=== PATIENT | male | born 1960 | race Caucasian/White ===

== ENCOUNTER 2023-08-01 04:59 | Inpatient (IN) | payer OTHER ==
[~2023-08-01] VITALS: Ht 180.3 cm; Wt 132.9 kg
[2023-08-01] MEDS: IPRATROPIUM 0.5MG/ALBUTEROL 2.5MG INH SOL UD 3ML (DUONEB) NEB PRN (05:59)
[2023-08-01 06:13] LABS: VENOUS BASE EXCESS -1.3 (-2.0-2.0); VENOUS HCO3 24.7 MMOL/L (23.0-27.0); VENOUS O2 SATURATION 79.1 % (60.0-80.0); VENOUS PARTIAL PRESSURE CO2 45.7 mmHg (38.0-50.0); VENOUS TOTAL CO2 26.1 MMOL/L (24.0-28.0)
[2023-08-01 06:18] LABS: BASO % 0.2 % (0.0-1.0); EOS # 0.2 10^3/uL (0.0-0.5); EOS % 1.4 % (0.0-3.0); HEMATOCRIT 42.8 % (42.0-52.0); HEMOGLOBIN 14.4 g/dl (13.5-17.5); LYMPH # 0.8 10^3/uL (1.5-5.0); LYMPH % 4.7 % (24.0-44.0); MEAN CORPUSCULAR HEMOGLOBIN 30.6 pg (27.0-33.0); MEAN CORPUSCULAR HGB CONC 33.6 g/dl (32.0-36.5); MEAN CORPUSCULAR VOLUME 90.9 fl (80.0-96.0); MONO # 0.7 10^3/uL (0.0-0.8); MONO % 4.4 % (2.0-8.0); NEUTROPHILS # 14.6 10^3/uL (1.5-8.5); NEUTROPHILS % 88.9 % (36.0-66.0); PLATELET COUNT, AUTOMATED 223 10^3/uL (150-450); RED BLOOD COUNT 4.71 10^6/uL (4.30-6.10); WHITE BLOOD COUNT 16.4 10^3/uL (4.0-10.0)
[2023-08-01 06:46] LABS: ALKALINE PHOSPHATASE 65 U/L (46-116); ALT/SGPT 44 U/L (7.0-40); AST/SGOT 32 U/L (<34); BILIRUBIN,DIRECT 0.2 MG/DL (<0.4); BILIRUBIN,TOTAL 0.6 MG/DL (0.3-1.2); BLOOD UREA NITROGEN 22 MG/DL (9-23); CALCIUM LEVEL 10.4 MG/DL (8.3-10.6); CARBON DIOXIDE LEVEL 26 MMOL/L (20-31); CHLORIDE LEVEL 100 MMOL/L (98-107); CK-MB VALUE MASS 3.8 NG/ML (<3.6); CREATININE FOR GFR 1.02 MG/DL (0.70-1.30); GLOMERULAR FILTRATION RATE > 60.0 (>49); GLUCOSE, FASTING 181 MG/DL (74-106); POTASSIUM SERUM 4.6 MMOL/L (3.5-5.1); SODIUM LEVEL 134 MMOL/L (136-145); TOTAL PROTEIN 7.1 G/DL (5.7-8.2)
[2023-08-01 06:53] LABS: CPK CREATINE PHOSPHOKINASE 231 U/L (46-171); MB/CK RELATIVE INDEX 1.64 (< OR =4)
[2023-08-01] MEDS: NS 1,000 ML IV ONE ×3 (07:13→12:07)
[2023-08-01] MEDS: methylPREDNISolone 125MG 2ML VIAL IV ONE (07:13)
[2023-08-01] MEDS ORDERED: FLOM0.4C39 PO (08:20)
[2023-08-01] MEDS ORDERED: CELE0.09 PO (08:20)
[2023-08-01] MEDS ORDERED: LOSA100T8 PO (08:20)
[2023-08-01] MEDS ORDERED: METF10004 PO (08:20)
[2023-08-01] MEDS ORDERED: CHOL25TA2 PO (08:20)
[2023-08-01] MEDS ORDERED: HOME MED LIST COMPLETE! XX SCH (08:20)
[2023-08-01] MEDS ORDERED: TERA10CA3 PO (08:20)
[2023-08-01] MEDS ORDERED: AVOD0.5C PO (08:20)
[2023-08-01] MEDS: AUGMENTIN 875 MG TAB PO ONE (08:34)
[2023-08-01 10:56] LABS: CK-MB VALUE MASS 3.5 NG/ML (<3.6)
[2023-08-01 10:57] LABS: MB/CK RELATIVE INDEX 1.91 (< OR =4)
[2023-08-01] MEDS ORDERED: GLUCAGON INJ 1MG VIAL SC PRN (11:45)
[2023-08-01] MEDS ORDERED: GLUCOSE 4 GM CHEW PO PRN (11:45)
[2023-08-01] MEDS ORDERED: DEXTROSE 50% 50ML SYRINGE IV PRN (11:45)
[2023-08-01] MEDS ORDERED: ACETAMINOPHEN TAB 650MG DOSE (2X325MG) PO PRN (11:45)
[2023-08-01] MEDS: cefTRIAXone SOD 1 GM in D5W MINI-BAG PLUS 50 ML IV ONE (12:07)
[2023-08-01 13:15] VITALS: BP 140/78; TEMP 97.7; O2SAT 97
[2023-08-01] MEDS: AZITHROMYCIN INJ 500 MG, VIAL MATE ADAPTER 1 EACH in NS 250 ML IV SCH (13:46)
[2023-08-01] MEDS: VITAMIN D 1,000 INTERNATIONAL UNITS TABLET PO SCH (13:46)
[2023-08-01] MEDS: TAMSULOSIN 0.4 MG CAP PO SCH (13:47)
[2023-08-01] MEDS: LOSARTAN 50MG TABLET PO SCH (13:47)
[2023-08-01] MEDS: INSULIN LISPRO (NovoLOG) PER UNIT SC SCH ×2 (13:59→21:00)
[2023-08-01 14:00] VITALS: BP 147/95; TEMP 97.9; O2SAT 99
[2023-08-01] MEDS: NS 1,000 ML IV SCH (15:02)
[2023-08-01] MEDS: DUTASTERIDE 0.5 MG CAP (AVODART) PO SCH (16:23)
[2023-08-01] MEDS: TERAZOSIN 5MG CAPSULE PO SCH (16:24)
[2023-08-01 17:27] LABS: CHOLESTEROL RISK RATIO 2.6 (<5)
[2023-08-01 17:29] LABS: FREE T4 1.22 NG/DL (0.89-1.76); THYROID STIMULATING HORMONE 0.948 uIU/ML (0.55-4.78)
[2023-08-01 17:42] LABS: HEMOGLOBIN A1c 6.5 % (4.0-6.0)
[2023-08-01 21:30] VITALS: BP 145/90; TEMP 98.1; O2SAT 95
[2023-08-02 05:44] VITALS: BP 131/72; TEMP 97.7; O2SAT 98
[2023-08-02 06:48] LABS: HEMATOCRIT 39.3 % (42.0-52.0); HEMOGLOBIN 13.4 g/dl (13.5-17.5); MEAN CORPUSCULAR HEMOGLOBIN 30.7 pg (27.0-33.0); MEAN CORPUSCULAR HGB CONC 34.1 g/dl (32.0-36.5); MEAN CORPUSCULAR VOLUME 89.9 fl (80.0-96.0); PLATELET COUNT, AUTOMATED 266 10^3/uL (150-450); RED BLOOD COUNT 4.37 10^6/uL (4.30-6.10); WHITE BLOOD COUNT 16.3 10^3/uL (4.0-10.0)
[2023-08-02 07:24] LABS: ALBUMIN 3.5 G/DL (3.2-5.2); ALKALINE PHOSPHATASE 56 U/L (46-116); ALT/SGPT 31 U/L (7.0-40); AST/SGOT 16 U/L (<34); BILIRUBIN,TOTAL 0.4 MG/DL (0.3-1.2); BLOOD UREA NITROGEN 24 MG/DL (9-23); CALCIUM LEVEL 9.4 MG/DL (8.3-10.6); CARBON DIOXIDE LEVEL 20 MMOL/L (20-31); CHLORIDE LEVEL 106 MMOL/L (98-107); GLOMERULAR FILTRATION RATE > 60.0 (>49); GLUCOSE, FASTING 162 MG/DL (74-106); MAGNESIUM LEVEL 1.6 MG/DL (1.8-2.4); POTASSIUM SERUM 4.7 MMOL/L (3.5-5.1); SODIUM LEVEL 138 MMOL/L (136-145); TOTAL PROTEIN 6.4 G/DL (5.7-8.2)
[2023-08-02] MEDS: MAG SULF 1GM/100ML (MAG RUN) 1 GM in IV 1 EA IV ONE (08:55)
[2023-08-02] MEDS: cefTRIAXone SOD 1 GM in D5W MINI-BAG PLUS 50 ML IV SCH (11:54)
[2023-08-02] MEDS: NS 500 ML IV ONE (13:54)
[2023-08-02 14:00] VITALS: BP 143/85; TEMP 97.5; O2SAT 98
[2023-08-02] MEDS ORDERED: ALBUTEROL SULFATE 2.5MG/0.5ML INH NEB SOLN NEB PRN (15:25)
[2023-08-02] MEDS: IPRATROPIUM 0.5MG/ALBUTEROL 2.5MG INH SOL UD 3ML (DUONEB) NEB SCH (15:40)
[2023-08-02] MEDS: LEVEMIR (INSULIN DETEMIR) 1 UNITS/0.01ML SC SCH (20:44)
[2023-08-03 05:31] VITALS: BP 155/84; TEMP 97.9; O2SAT 98
[2023-08-03 06:10] LABS: BASO # 0.1 10^3/uL (0.0-0.2); BASO % 0.4 % (0.0-1.0); EOS # 1.3 10^3/uL (0.0-0.5); EOS % 11.5 % (0.0-3.0); HEMATOCRIT 36.2 % (42.0-52.0); HEMOGLOBIN 12.1 g/dl (13.5-17.5); LYMPH # 2.2 10^3/uL (1.5-5.0); LYMPH % 19.4 % (24.0-44.0); MEAN CORPUSCULAR HEMOGLOBIN 30.6 pg (27.0-33.0); MEAN CORPUSCULAR HGB CONC 33.4 g/dl (32.0-36.5); MEAN CORPUSCULAR VOLUME 91.6 fl (80.0-96.0); MONO # 0.6 10^3/uL (0.0-0.8); MONO % 5.3 % (2.0-8.0); NEUTROPHILS # 7.3 10^3/uL (1.5-8.5); NEUTROPHILS % 63.1 % (36.0-66.0); PLATELET COUNT, AUTOMATED 226 10^3/uL (150-450); RED BLOOD COUNT 3.95 10^6/uL (4.30-6.10); WHITE BLOOD COUNT 11.5 10^3/uL (4.0-10.0)
[2023-08-03 06:47] LABS: BLOOD UREA NITROGEN 26 MG/DL (9-23); CALCIUM LEVEL 8.3 MG/DL (8.3-10.6); CARBON DIOXIDE LEVEL 23 MMOL/L (20-31); CHLORIDE LEVEL 110 MMOL/L (98-107); CREATININE FOR GFR 1.18 MG/DL (0.70-1.30); GLOMERULAR FILTRATION RATE > 60.0 (>49); GLUCOSE, FASTING 111 MG/DL (74-106); MAGNESIUM LEVEL 1.6 MG/DL (1.8-2.4); POTASSIUM SERUM 4.2 MMOL/L (3.5-5.1); SODIUM LEVEL 143 MMOL/L (136-145)
[2023-08-03 08:05] VITALS: BP 159/83
[2023-08-03] MEDS: MAG SULF 1GM/100ML (MAG RUN) 1 GM in IV 1 EA IV ONE (10:04)
[2023-08-03] MEDS ORDERED: DOXY50CA35 PO (11:25)
[2023-08-03] MEDS ORDERED: CEFD300CAP PO (11:25)
[2023-08-03] MEDS ORDERED: ALB2.5NEB NEB (11:25)
[2023-08-03] MEDS ORDERED: ALBU8.5H INH (13:12)
== END 2023-08-03 13:57 | disposition home or self-care (01) | DRG 194 ==
LOC: M ED 04:59 → M ED INP 11:43 → M MSPAV 13:07
PROVIDERS: ADMIT Hospitalist; ATTEND Hospitalist
PROC: B246ZZZ Ultrasonography of Right and Left Heart (ICD-10-PCS; principal; 2023-08-01)
DX: J18.9 Pneumonia, unspecified organism (principal); J98.11 Atelectasis; I45.10 Unspecified right bundle-branch block; I10 Essential (primary) hypertension; E11.9 Type 2 diabetes mellitus without complications; J30.9 Allergic rhinitis, unspecified; L65.9 Nonscarring hair loss, unspecified; N40.0 Benign prostatic hyperplasia without lower urinary tract symptoms; Z79.899 Other long term (current) drug therapy; E78.5 Hyperlipidemia, unspecified; L71.9 Rosacea, unspecified; Z79.84 Long term (current) use of oral hypoglycemic drugs

== ENCOUNTER 2023-12-09 09:41 | Day surgery (SDC) | payer OTHER ==
[~2023-12-09] VITALS: Ht 180.3 cm; Wt 112.9 kg
[~2023-12-09 09:41] MED LIST: ALB2.5NEB NEB; ALBU8.5H INH; AVOD0.5C PO; CARB15DR33 OP; CEFD300CAP PO; CELE0.09 PO; CHOL25TA2 PO; DOXY50CA35 PO; FLOM0.4C39 PO; LOSA100T8 PO; METF10004 PO; OMEG10002 PO; PHENYLEPHRINE 10% OPHTH SOL 5ML OD PRN; ROSU10TA61 PO; TERA10CA3 PO; VENTAER INH
[2023-12-09] MEDS: ATROPINE SULFATE 1% OPHTH SOLN 2ML BTL OD SCH (10:09)
[2023-12-09] MEDS: PHENYLEPHRINE 2.5% OPHTH SOL 2ML OD SCH (10:09)
[2023-12-09] MEDS: TROPICAMIDE 1% OPHTH SOLN 15ML OD SCH (10:09)
[2023-12-09] MEDS: OFLOXACIN 0.3 % (OCUFLOX) OPTH SOL 5ML OD ONE (10:09)
[2023-12-09] MEDS: LIDOCAINE 3.5 % 1ML OPHTH TOPICAL GEL OU ONE (10:09)
[2023-12-09] MEDS ORDERED: MIDAZOLAM INJ 2MG/2ML VIAL As Ordered ONE (11:07)
[2023-12-09] MEDS ORDERED: fentaNYL 100 MCG/2 ML INJECTION As Ordered ONE (11:08)
[2023-12-09] MEDS: BSS IRRIG/VANCO(10MG)/TOBRA(5MG)/EPINEPH(1:1000-0.5CC)500ML BAG-ORONLY As Ordered ONE (11:11)
[2023-12-09] MEDS: LIDOCAINE 1% SDV 5ML VIAL As Ordered ONE (11:11)
[2023-12-09] MEDS: CEFUROXIME 1MG/0.1ML INTRACAMERAL INJ As Ordered ONE (11:11)
[2023-12-09 11:25] VITALS: BP 167/94; TEMP 97.6; O2SAT 100
== END 2023-12-09 11:47 | disposition home or self-care (01) ==
LOC: M SDC 09:41
PROVIDERS: ATTEND Ophthalmology
DX: E11.36 Type 2 diabetes mellitus with diabetic cataract (principal); H25.11 Age-related nuclear cataract, right eye; H57.03 Miosis; I10 Essential (primary) hypertension; E78.00 Pure hypercholesterolemia, unspecified; Z79.899 Other long term (current) drug therapy; Z79.84 Long term (current) use of oral hypoglycemic drugs
CPT/HCPCS: 66982; J0697; J2250; J3010; V2632